=== PATIENT | female | born 2000 | race Hispanic/Latino ===

== ENCOUNTER 2023-08-23 00:17 | Inpatient (IN) | payer MEDICAID, OTHER, SELFPAY ==
[2023-08-23 00:57] VITALS: BMI 19.8
[2023-08-23] MEDS ORDERED: fentaNYL 50 mcg/mL 1 mL Vial SLOW IVP PRN (01:05)
[2023-08-23] MEDS ORDERED: Misoprostol 200 MCG TAB PR PRN (01:05)
[2023-08-23] MEDS ORDERED: Ondansetron PF 4 MG/2 ML Vial IVP PRN ×2 (01:05→02:21)
[2023-08-23] MEDS ORDERED: Methylergonovine 0.2 MG/ML VIAL IM PRN (01:05)
[2023-08-23] MEDS ORDERED: hydrALAZINE 20 MG/ML VIAL SLOW IVP PRN ×2 (01:05→08:06)
[2023-08-23] MEDS ORDERED: Acetaminophen 500 MG TAB PO PRN (01:05)
[2023-08-23] MEDS ORDERED: Carboprost 250 MCG/ML AMP IM PRN (01:05)
[2023-08-23] MEDS ORDERED: Tranexamic Acid 1,000 MG/10 ML VIAL IVP PRN (01:05)
[2023-08-23] MEDS ORDERED: Lidocaine 1% (PF) 30 ML VIAL SC PRN (01:05)
[2023-08-23] MEDS ORDERED: Promethazine HCl 25 MG/ML VIAL IM PRN ×2 (01:05→02:21)
[2023-08-23] MEDS ORDERED: Oxytocin 30 units/NS 500 ML 500 ML IV SCH ×2 (01:15)
[2023-08-23 01:53] LABS: Hematocrit 36.8 % (34.9-44.5); Hemoglobin 12.7 g/dL (12.0-15.5); Mean Corpuscular HGB CONC 34.5 g/dL (32.0-36.0); Mean Corpuscular Hemoglobin 29.7 pg (27.0-33.0); Mean Platelet Volume 13.1 fL (7.4-10.4); Platelet Count 187 10x3/uL (150-450); RBC Distribution Width 17.4 % (11.5-14.5); Red Blood Cell (RBC) Count 4.28 10x6/uL (3.90-5.03); White Blood Cell (WBC) Count 14.6 10x3/uL (3.5-10.5)
[2023-08-23 02:06] LABS: HBsAg Index 0.21 S/CO (0-0.99); Hep B Surf Ag - L&D Non-Reactive S/CO (NonReactive)
[2023-08-23 02:08] LABS: Syphilis Antibody Nonreactive (Nonreactive); Syphilis Antibody Index 0.03 S/CO (<1.00 Non-Reactive)
[2023-08-23] MEDS: fentaNYL/Ropivacaine Epidural 100 ML ONE (02:19)
[2023-08-23] MEDS ORDERED: Moisturizing Cream (Eucerin) 113 GM JAR TOP PRN (02:21)
[2023-08-23] MEDS ORDERED: Lactated Ringer's 500 ML IV PRN (02:21)
[2023-08-23] MEDS ORDERED: Acetaminophen 325 MG TAB PO PRN (02:21)
[2023-08-23] MEDS ORDERED: diphenhydrAMINE 50 MG/ML VIAL IVP PRN (02:21)
[2023-08-23] MEDS ORDERED: ePHEDrine Sulfate 50 MG/10 ML VIAL SLOW IVP PRN (02:21)
[2023-08-23] MEDS ORDERED: Naloxone HCl 0.4 mg/ml Vial IVP PRN ×2 (02:21)
[2023-08-23] MEDS: Lactated Ringer's 1,000 ML IV SCH (02:24)
[2023-08-23] MEDS ORDERED: Communication Order-Pharmacy FS SCH (02:30)
[2023-08-23] MEDS ORDERED: fentaNYL 2 mcg/Ropivacaine 0.2% Epidural 100 ML CADD EPIDURAL SCH (02:30)
[2023-08-23] MEDS: Oxytocin 30 units/NS 500 ML 500 ML IV SCH (05:40)
[2023-08-23] MEDS ORDERED: Lanolin Ointment 7 GM TUBE TOP PRN (08:06)
[2023-08-23] MEDS ORDERED: Milk Of Magnesia 30 ML UDCUP PO PRN (08:06)
[2023-08-23] MEDS ORDERED: Benzocaine-Menthol 82.5 ML CAN TOP PRN (08:06)
[2023-08-23] MEDS ORDERED: Preparation H Ointment 28 GM TUBE PR PRN (08:06)
[2023-08-23] MEDS ORDERED: Boostrix 0.5 ML (Tdap) VIAL (>/=7 yrs of age) IM ONE (08:06)
[2023-08-23] MEDS ORDERED: Bisacodyl 10 MG SUPP PR PRN (08:06)
[2023-08-23] MEDS: Prenatal Vitamin 1 TAB PO SCH (08:56)
[2023-08-23] MEDS: Docusate 100 MG CAP PO SCH (08:57)
[2023-08-23] MEDS: Ibuprofen 800 MG TAB PO SCH (08:57)
[2023-08-23] MEDS: Ferrous Sulfate 325 MG TAB PO SCH ×2 (15:18→17:09)
[2023-08-23] MEDS ORDERED: Bupivacaine 0.25% HCL 30 ML VIAL ONE (16:15)
[2023-08-24] MEDS ORDERED: Measles/Mumps/Rubella 10 MCG/0.5 ML VIAL SC ONE (06:00)
[2023-08-24 08:10] VITALS: BP 102/64; TEMP 97.6
[2023-08-24] MEDS: Measles/Mumps/Rubella 10 MCG/0.5 ML VIAL SC ONE (14:33)
== END 2023-08-24 15:40 | disposition home or self-care (01) | DRG 807 ==
LOC: CSHLD/OP 00:17 → CSHLD 00:56 → CSHPED 07:59
PROVIDERS: ADMIT Family Medicine; ATTEND Family Medicine
PROC: 10E0XZZ Delivery of Products of Conception, External Approach (ICD-10-PCS; principal; 2023-08-23)
PROC: 0HQ9XZZ Repair Perineum Skin, External Approach (ICD-10-PCS; 2023-08-23)
PROC: 10907ZC Drainage of Amniotic Fluid, Therapeutic from Products of Conception, Via Natural or Artificial Opening (ICD-10-PCS; 2023-08-23)
DX: O48.0 Post-term pregnancy (principal); Z37.0 Single live birth; Z3A.40 40 weeks gestation of pregnancy; O99.02 Anemia complicating childbirth; O36.5930 Maternal care for other known or suspected poor fetal growth, third trimester, not applicable or unspecified; O26.13 Low weight gain in pregnancy, third trimester; O70.0 First degree perineal laceration during delivery
CPT/HCPCS: 36415; 51702; 85027; 86780; 86850; 86900; 86901; 87340; 90707; 99285; J0665; J2590; J7120